=== PATIENT | male | born 1950 | race Caucasian/White ===

== ENCOUNTER → 2016-09-11 | Outpatient (CLI) | payer MEDICARE, MEDICAID ==
--- NOTE | 2016-09-12 15:14 | REP ---
PET/CT: HISTORY: Restaging non-small cell lung carcinoma of the right lung. 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 COMPARISONS: Comparison PET/CT December 07, 2015. Comparison CT study of the chest is from July 31, 2016. TECHNIQUE: 69 minutes following the intravenous injection of a 7.7 mCi dose of F-18 FDG, three-dimensional PET scintigraphy is acquired from the skull base to the proximal thighs. Triplanar noncontrast CT scanning is acquired through the same anatomic range for attenuation correction, and image registration with scan parameters optimized to minimize radiation exposure to the patient. PET scintigraphy and CT datasets were fused and displayed on a workstation with multiplanar and projection display capability. PET/CT FINDINGS: The head and neck soft tissues are unremarkable. There are post-treatment changes in the right upper lobe in a triangular area of pleuroparenchymal fibrosis seen on recent CT study. The mass noted in November of 2015 is gone. There is a linear band of mildly hypermetabolic uptake in this fibrotic appearing tissue maximum SUV value of approximately 3 to 3.5. There is one tiny subcentimeter focus of more hypermetabolic uptake however within this where maximum SUV value is 6.2. I cannot exclude a small focal area of residual viable tumor here. No hilar or mediastinal hypermetabolic coby uptake is seen. No adenopathy is appreciated. No other abnormal hypermetabolic uptake is seen in the lung parenchyma. In the abdomen and pelvis, normal hepatic and splenic, genitourinary, and gastrointestinal FDG accumulation is seen. No abnormal adrenal FDG accumulation is seen. Post cholecystectomy clips are noted. No abnormal skeletal hypermetabolic uptake is seen. IMPRESSION: There is a 1 cm focus of hypermetabolic uptake in the right upper lobe surrounded by what appears to be post-treatment change. Maximum SUV value in this 1 cm focus is 6.2. This must be considered suspicious for a focus of residual or recurrent viable neoplasm. No other abnormal hypermetabolic uptake. Signed by Teja Cabral MD 09/12/2016 03:30 P
== END ==
LOC: M RAD 09:22
PROVIDERS: ATTEND Internal Medicine Medical Oncology
DX: C34.90 Malignant neoplasm of unspecified part of unspecified bronchus or lung (principal)
CPT/HCPCS: 78815; A9552

== ENCOUNTER → 2016-10-23 | Outpatient (CLI) | payer MEDICARE, MEDICAID ==
[2016-10-23 12:45] LABS: BLOOD UREA NITROGEN 32 MG/DL (7-18); CREATININE FOR GFR 1.04 MG/DL (0.70-1.30); GLOMERULAR FILTRATION RATE > 60.0 (>49)
== END ==
LOC: M LAB 10:49
PROVIDERS: ATTEND Radiology Radiation Oncology
DX: C34.31 Malignant neoplasm of lower lobe, right bronchus or lung (principal)

== ENCOUNTER → 2016-10-29 | Outpatient (CLI) | payer MEDICARE, MEDICAID ==
[~2016-10-29] MED LIST: ISOVUE-370 76% 100ML VIAL (Q9967) As Ordered ONE
--- NOTE | 2016-10-29 12:33 | REP ---
Clinical: Lung cancer. Comparison: 09/11/2016, 07/31/2016. Technique: Axial contrast enhanced images from the thoracic inlet to the upper abdomen using 100 ml Isovue 370 intravenous contrast material with coronal and sagittal re-formations. Findings: Ill-defined area of mass / consolidation extending from the right hilum to the subpleural right upper lobe is again identified and similar to prior examination. However, current examination now demonstrates a nondisplaced fracture along the anterolateral right second rib adjacent to the ill-defined mass / consolidation with what appears to be superficial and surrounding soft tissue and gas complex including changes extending into the subpleural space which may reflect traumatic hematoma/abscess (images 22 - 49). The remainder of the lung schuler are relatively well aerated and without further consolidation, nodule or mass lesion. No pneumothorax. Mediastinum is stable including atherosclerotic changes to the thoracic aorta and coronary arteries without aortic aneurysm, cardiomegaly or pericardial effusion. Impression: 1. Complex soft tissue lesion in the with fluid and gas and deep to the right pectoralis muscle and involving the subpleural chest adjacent to nondisplaced right anterolateral 2nd rib fracture suggesting traumatic hematoma and possible abscess or gas related to laceration involving the underline lung. Area measures approximately 4.7 x 8.0 x 8.5 cm. 2. The above mentioned complex area is adjacent to and inseparable from the associated complex right upper lobe mass / consolidation which extends to the hilum and is consistent with that the patient's history of neoplasm. Signed by Luis Asencio MD 10/29/2016 12:24 P
== END ==
LOC: M RAD 10:37
PROVIDERS: ATTEND Radiology Radiation Oncology
DX: R91.8 Other nonspecific abnormal finding of lung field (principal); S22.31XA Fracture of one rib, right side, initial encounter for closed fracture; C34.31 Malignant neoplasm of lower lobe, right bronchus or lung; X58.XXXA Exposure to other specified factors, initial encounter; Y93.9 Activity, unspecified; Y92.9 Unspecified place or not applicable; Y99.8 Other external cause status
CPT/HCPCS: 71260; Q9967

== ENCOUNTER → 2016-11-18 | Outpatient (CLI) | payer MEDICARE, MEDICAID ==
[2016-11-18 12:30] LABS: CREATININE FOR GFR 0.64 MG/DL (0.70-1.30); GLOMERULAR FILTRATION RATE > 60.0 (>49)
== END ==
LOC: M LAB 11:11
PROVIDERS: ATTEND Radiology Radiation Oncology
DX: C34.11 Malignant neoplasm of upper lobe, right bronchus or lung (principal)

== ENCOUNTER → 2016-11-21 | Outpatient (CLI) | payer MEDICARE, MEDICAID ==
--- NOTE | 2016-11-21 12:27 | REP ---
The C CT of the chest with IV contrast: Comparisons are 10/29/2016, 07/31/2016 and 10/19/2015. According to the film file the patient has right upper lobe non-small cell lung carcinoma and has been treated with radiation therapy. There is a right upper lobe mass extending to the anterolateral right chest wall as previously. On 10/29/2016 a soft tissue mass had developed in the anterolateral right chest wall adjacent to the lesion in the right lung. There are multiple air or gas bubbles within this chest wall mass. Additionally, a nondisplaced right second rib fracture was identified on , not present on prior CTs. On the study today this the chest wall mass is again identified and again contains multiple air or gas bubbles. This mass today measures 8.3 x 7.0 cm. This mass previously measured 8.0 by 4.8 cm. On the study today there is a fracture of the right second rib, slightly displaced. This was present previously but was nondisplaced. On the study today there is a nondisplaced fracture of the right third rib laterally. This was not present previously. I am unable to differentiate pathologic fracture versus traumatic fracture. Correlation with clinical history is recommended. The chest wall mass could represent neoplastic tumor spread or post-traumatic chest wall hematoma with possible abscess formation, or combination traumatic and neoplastic mass. The right upper lobe lung parenchymal mass demonstrates linear stranding towards the right hilus and toward he chest wall mass and is unchanged from the comparison studies. There are no other lung masses. There are no infiltrates or effusions. There is no mediastinal or hilar lymph node enlargement. There is no axillary lymph node enlargement. Thoracic aorta is unremarkable. Cardiac size is normal. There is no pericardial effusion. The visualized upper abdominal contents are unremarkable except for surgical clips in the gallbladder fossa, unchanged. There is no adrenal mass. Impression: Anterolateral right upper chest wall mass as described, slightly larger than the 10/29/2016 with fractures in the right second and third ribs adjacent to this mass. Neoplastic tumor spread versus post-traumatic mass are diagnostic considerations. There are multiple air or gas bubbles within this mass. There is no pneumothorax or pleural fluid collection. The patients known lung mass adjacent to this chest wall mass is unchanged from the comparison studies. There is no adenopathy. No acute infiltrate. No effusion. Otherwise, negative CT study of the chest. Signed by Gaurav Champion MD 11/21/2016 12:19 P
== END ==
LOC: M RAD 10:28
PROVIDERS: ATTEND Radiology Radiation Oncology
DX: C34.11 Malignant neoplasm of upper lobe, right bronchus or lung (principal)
CPT/HCPCS: 71260; Q9967

== ENCOUNTER → 2016-12-30 | Outpatient (CLI) | payer MEDICARE, MEDICAID ==
--- NOTE | 2016-12-30 16:15 | REP ---
CT of the chest with IV contrast: Comparisons 11/21/2016. The patient's known right upper lobe lung mass is again identified and unchanged. There is stranding from this mass toward the right hilus and toward the anterolateral right chest wall. The mass invades the chest wall and becomes extrapleural with extension into the chest wall musculature. There are multiple air or gas bubbles within this portion of the mass in the chest wall. All of these findings are unchanged. There are fractures of the right second and third ribs in the location of this mass, unchanged. On the study today there is also a right fourth rib fracture in the location of this mass, not definitely present previously. There is linear stranding in the left lower lobe today as a change from the comparison study, compatible with discoid atelectasis. There are no acute infiltrates or effusions, otherwise. There is no mediastinal, hilar or axillary lymph node enlargement, as previously. Thoracic aorta is unremarkable. Cardiac size is normal. There is no pericardial effusion. Upper abdomen: The visualized hepatic parenchyma is unremarkable. Surgical clips in the gallbladder fossa. The pancreas, spleen and adrenals are unremarkable. There is no adrenal mass. There are no lytic, blastic or destructive skeletal changes. Impression: No significant change from 11/21/2016 except that there is now a fracture of the fourth rib anterolaterally in association with the right chest wall mass, not present previously. Signed by Gaurav Champion MD 12/30/2016 04:07 P
== END ==
LOC: M RAD 14:49
PROVIDERS: ATTEND Internal Medicine Medical Oncology
DX: C34.11 Malignant neoplasm of upper lobe, right bronchus or lung (principal)
CPT/HCPCS: 71260; Q9967

== ENCOUNTER → 2017-06-18 | Outpatient (REF) | payer MEDICARE, MEDICAID ==
[2017-06-18 18:35] LABS: INR 0.95
== END ==
LOC: M LAB REF 16:38
PROVIDERS: ATTEND Internal Medicine Medical Oncology
DX: C34.90 Malignant neoplasm of unspecified part of unspecified bronchus or lung (principal)

== ENCOUNTER → 2017-07-15 | Outpatient (CLI) | payer MEDICARE, MEDICAID | LOC: M PLARAD 14:04 | DX: C34.11 Malignant neoplasm of upper lobe, right bronchus or lung (principal) | CPT/HCPCS: 78815 ==

== ENCOUNTER → 2017-07-16 | Outpatient (CLI) | payer MEDICARE, MEDICAID ==
[~2017-07-16] MED LIST changes: -ISOVUE-370 76% 100ML VIAL (Q9967) As Ordered ONE; +PROHANCE 279.3MG/ML 15ML VIAL (A9576) As Ordered ONE; +PROHANCE 279.3MG/ML 5ML VIAL (A9576) As Ordered ONE
--- NOTE | 2017-07-17 06:14 | REP ---
MRI BRAIN WITHOUT AND WITH CONTRAST: HISTORY: Non-small cell carcinoma. CONTRAST: ProHance 16 mL. COMPARISON: 11/06/2015. A small area of increased signal intensity on T2-weighted images is present in the right basal ganglia. This represents an old lacunar infarction. Areas of increased signal intensity on T2-weighted images are present in the periventricular and subcortical white matter. This represents small vessel ischemic disease. There is no intraparenchymal hemorrhage, acute infarct, mass or midline shift. There is no abnormal enhancement. The ventricular system and cortical sulci are dilated consistent with minimal volume loss. There is no extracerebral collection. Minimal mucosal thickening is present in the left sphenoid sinus. A 9 mm cyst is present in the left infratemporal fossa anterior to the left temporomandibular joint. There is minimal peripheral enhancement with contrast. This is unchanged compared to the previous study. IMPRESSION: 1. Old right basal ganglia lacunar infarction. 2. Small vessel ischemic disease. 3. Minimal volume loss. Signed by Boni Koenig MD 07/17/2017 08:45 A
== END ==
LOC: M RAD 13:07
PROVIDERS: ATTEND Internal Medicine Medical Oncology
DX: C34.90 Malignant neoplasm of unspecified part of unspecified bronchus or lung (principal); I73.9 Peripheral vascular disease, unspecified
CPT/HCPCS: 70553; A9576

== ENCOUNTER → 2017-08-05 | Outpatient (CLI) | payer MEDICARE, MEDICAID ==
--- NOTE | 2017-08-07 10:57 | RADONC ---
RADIATION ONCOLOGY CONSULTATION NOTE DATE: 08/05/2017 CHART NUMBER: [id number] DIAGNOSIS: Lung cancer. INITIAL STAGE IB, [id number]. ECOG PERFORMANCE STATUS: 2 Mr. Rush is a very pleasant 67-year-old white male with the diagnosis of recurrent moderate to poorly differentiated squamous cell carcinoma of his right upper lobe. Mr. Rush initially presented to me on 01/09/2016 with a stage IB, [id number], moderate to poorly differentiated squamous cell carcinoma of the right upper lobe. He was referred to [facility] where he underwent SBRT for a total dose of 6000 cGy delivered in five fractions of 1500 cGy each. Radiation was delivered in February 2016. The patient has generally done well since then but has been having increasing pain over his right chest. A recent PET scan was done on 07/15/2017 and revealed a large area of hypermetabolic uptake with necrotic peripheral right upper lobe mass invading the right chest wall anterior laterally. A repeat biopsy was done on 07/04/[address] guidance and viable squamous cell carcinoma cells were seen. The patient is now being referred to us to see if we could be of any benefit to him with external beam radiation therapy. PAST MEDICAL HISTORY: The patient's past medical history is positive for diabetes, coronary artery disease, a myocardial infarction, peripheral vascular disease, sleep apnea, COPD, hypertension, diabetic neuropathy and degenerative disc disease. He is also positive for arthritis. ALLERGIES: The patient has NO KNOWN DRUG ALLERGIES. SOCIAL HISTORY: The patient has smoked two packs of cigarettes per day for most of his life. He reports that he quit smoking in 1999 but began smoking again approximately 2-3 years ago. FAMILY HISTORY: Patient's family history is positive for father with colon cancer and brother with some type of cancer. REVIEW OF SYSTEMS: The patient's review of systems is positive for right chest wall pain. He also has some shortness of breath. He reports getting short of breath when walking up stairs. The patient's review of systems is otherwise generally noncontributory. He denies nausea, vomiting, fevers, chills, night sweats, diplopia, headaches, anxiety or depression, anorexia, weight loss, visual disturbances, urinary or bowel difficulties, bone pain or neurological problems. PHYSICAL EXAMINATION: The patient is a well-developed, well-nourished white male in no acute distress. HEENT: Exam is normocephalic, atraumatic. Extraocular movements are intact. There is clear disfigurement of the patient's left upper lateral thoracic region. It is tender to pressure and percussion. His lungs are generally overall clear to auscultation and percussion. His heart has regular rate and rhythm. His abdomen is benign with no splenomegaly, masses or tenderness. ASSESSMENT: I have discussed with the patient in detail the potential benefits as well as possible acute and chronic sequelae of external beam radiation therapy. We discussed logistics of treatment planning, simulation and subsequent fractionated daily radiation treatments. At this time, I am ordering a differential lung scan as well as pulmonary function to see whether or not the patient can tolerate radiation from a pulmonary standpoint. In addition, the patient has some other risks. He received a rather large dose of radiation in the range of 6000 cGy in fractions of 1500 cGy each. The area we will be treating will overlap that. This may lead to long-term soft tissue and bone necrosis, and may also lead to skin necrosis. In light of the fact that the patient already has extreme pain and the tumor has eaten through the chest and appears to be beginning to change the contour of the skin, I believe we will be facing this issue sooner with the malignancy nonetheless. In light of that, if the patient is willing to risk radiation, it may make sense to deliver palliative treatment at this time rather than waiting. Once again, I have scheduled the patient for pulmonary function tests as well as a differential lung scan. I have also scheduled the patient for initiation CT simulation and initiation of treatment planning. Further recommendations will follow once we obtain the above-mentioned studies. cc: MD Jessy Zhu MD Seung Hahn, MD Robert Johnson, MD Rory Sears, DO [facility]
== END ==
LOC: M ONCR 13:03
PROVIDERS: ATTEND Radiology Radiation Oncology
DX: C34.11 Malignant neoplasm of upper lobe, right bronchus or lung (principal)

== ENCOUNTER → 2017-08-06 | Outpatient (CLI) | payer MEDICARE, MEDICAID ==
--- NOTE | 2017-08-06 10:33 | REP ---
Clinical: Lung cancer. Chest pain. Technique: PA and lateral. Comparison: 07/04/2017. Findings: Right upper lobe mass / consolidation appears increased from prior examination. Associated right hilar adenopathy and surrounding atelectasis is suggested. No effusion. The left hemithorax is well-aerated and clear. The cardiac silhouette is normal. Skeletal structures are intact. Impression: Mildly increased right upper lobe mass consolidation with suspected right hilar adenopathy and surrounding atelectasis. Signed by Luis Asencio MD 08/06/2017 10:24 A
--- NOTE | 2017-08-06 10:43 | PFTRPT ---
Site: [facility], [address] [place] [address], [id number] ID: [id number] Name: LAKISHA MAU LYNCH Doctor: MD Davis Daniel Tech: Avis JOYCE RRT Age: 67 Sex: Male Race: Height: 66.50 Inches Weight: 182.00 Lbs BSA: 1.93 Diagnosis: LUNG CA PULMONARY FUNCTION REPORT ORDERING PROVIDER: Gaurav Davis MD DATE OF SERVICE: 08/06/17 SPIROMETRY: Pre and post bronchodilator study of excellent technical quality. The forced vital capacity is reduced. The FEV1 is out of proportion. The obstructive index is, therefore, reduced. FLOW VOLUME LOOP: The expiratory limb of the flow volume loop does suggest airflow limitation. Favorable bronchodilator response is identified. LUNG VOLUMES: The total lung capacity is normal. The residual volume suggests air trapping. DIFFUSION CAPACITY: The diffusion capacity is normal. HEMOGLOBIN: No hemoglobin is available for correction. AIRWAY MECHANICS: Airway resistance and conductance are normal. IMPRESSION: At least mild underlying obstructive ventilatory impairment with concomitant air trapping. Favorable bronchodilator response. MTDD
--- NOTE | 2017-08-06 10:58 | REP ---
Differential ventilation-perfusion lung scan: History: Lung carcinoma. Technique: 1.0 mCi technetium 99m MAA is given intravenously and followed by a 2.0 mCi dose of technetium-99m DTPA aerosol for the ventilation portion of the study. Anterior and posterior images are acquired for each portion of the study. The lung schuler are segmented into upper, mid and lower lung zone regions for "segmental" ventilation perfusion lung status segregation. Results: There is patchy central bronchial uptake of ventilatory tracer consistent with COPD. There is very poor ventilation in the right upper lobe and right mid lung zone regions. There is decreased perfusion in this regions as well in a matched pattern. Overall, the differential lung function on the perfusion scan is 48.5% of counts originate from the left lung and 51.5% from the right lung. Overall differential function on the ventilation study is somewhat more asymmetric with 60% of counts originating from the left lung and 40% from the right. Signed by Teja Cabral MD 08/06/2017 11:19 A
== END ==
LOC: M RAD 09:20
PROVIDERS: ATTEND Radiology Radiation Oncology
DX: C34.90 Malignant neoplasm of unspecified part of unspecified bronchus or lung (principal)
CPT/HCPCS: 71020; 78598; 94060; 94726; 94729; A9540; A9567

== ENCOUNTER 2017-08-12 10:44 | Outpatient (RCR) | payer MEDICARE, MEDICAID | END 2017-09-07 | LOC: M ONCR 10:44 | DX: C34.11 Malignant neoplasm of upper lobe, right bronchus or lung (principal) | CPT/HCPCS: 77334 ==

== ENCOUNTER → 2017-08-12 | Outpatient (CLI) | payer MEDICARE, MEDICAID | LOC: M RAD 10:39 | PROVIDERS: ATTEND Radiology Radiation Oncology | DX: C34.11 Malignant neoplasm of upper lobe, right bronchus or lung (principal) ==

== ENCOUNTER → 2017-08-13 | Outpatient (REF) | payer MEDICARE, MEDICAID | LOC: M LAB REF 13:45 | PROVIDERS: ATTEND Pathology Cytopathology | DX: C34.90 Malignant neoplasm of unspecified part of unspecified bronchus or lung (principal) ==

== ENCOUNTER → 2017-11-11 | Outpatient (CLI) | payer MEDICARE, MEDICAID | LOC: M INFU 12:00 | DX: C34.11 Malignant neoplasm of upper lobe, right bronchus or lung (principal) ==